=== PATIENT | female | born 1985 | race Caucasian/White ===

== ENCOUNTER → 2017-05-17 | Outpatient (CLI) | payer SELFPAY ==
[~2017-05-17] MED LIST: NEOPOLHYDS OT; SULF10OPSA OD
== END | disposition home or self-care (01) ==
LOC: LAB 16:30 → LAB SHORT 16:30
DX: N39.0 Urinary tract infection, site not specified (principal)
CPT/HCPCS: 87086

== ENCOUNTER → 2017-07-12 | Outpatient (CLI) | payer SELFPAY ==
[2017-07-12 14:09] LABS: Source, Urine Clean Catch
[2017-07-12 16:36] LABS: Bilirubin, Urine Neg (Neg); Blood, Urine Neg (Neg); Glucose Qualitative, Urine Neg (Neg); Ketones, Urine Neg (Neg); Leukocyte Esterase, Urine Neg (Neg); Nitrite, Urine Neg (Neg); Protein, Urine Neg (Neg); Urobilinogen, Urine NORM (Normal)
[2017-07-12 17:15] LABS: Appearance, Urine Clear (Clear)
== END | disposition home or self-care (01) ==
LOC: LAB SHORT 14:06 → OLS 14:06
PROVIDERS: Physician Assistant
DX: N39.0 Urinary tract infection, site not specified (principal); R30.9 Painful micturition, unspecified
CPT/HCPCS: 81003; 87086

== ENCOUNTER → 2024-09-27 | Outpatient (CLI) | payer OTHER ==
[2024-09-27 20:11] LABS: Bacterial Vaginosis PCR Negative (NEGATIVE); Candida Group, PCR NOT DETECTED (NOT DETECT); Candida glabrata-krusei, PCR NOT DETECTED (NOT DETECT)
[2024-10-03 14:32] LABS: HPV HIGH RISK BY TMA Not Detected; HPV SOURCE Cervical/Vag
== END | disposition home or self-care (01) ==
LOC: LAB SHORT 15:45 → LAB 15:45
PROVIDERS: Advanced Practice Midwife
DX: Z01.419 Encounter for gynecological examination (general) (routine) without abnormal findings (principal); N76.0 Acute vaginitis
CPT/HCPCS: 81515; 87624; G0123